=== PATIENT | female | born 1990 ===

== ENCOUNTER 2016-07-15 15:25 | Emergency (ER) | payer SELFPAY ==
[2016-07-15 15:30] VITALS: BP 118/59
[2016-07-15] MEDS ORDERED: LIDOCAINE/EPI/TETRACAINE TOPICAL GEL 3 ML. TP ONE ×2 (15:33→15:45)
--- NOTE | 2016-07-15 15:51 | ED.ADGEN ---
Adult General [facility] HPI Patient is a 26-year-old female presents emergency department laceration to her left forehead. This occurred approximately one hour prior to arrival. Patient states that she hit her head on a table as she was falling to the ground. She denies loss of consciousness or other injuries. Patient states adamantly that she feels safe where she is at. Review of Systems Review of Systems Constitutional: Denies fever or chills [] Eyes: Denies change in visual acuity, redness, or eye pain [] HENT: Denies nasal congestion or sore throat [] Respiratory: Denies cough or shortness of breath [] Cardiovascular: No additional information not addressed in HPI [] GI: Denies abdominal pain, nausea, vomiting, bloody stools or diarrhea [] : Denies dysuria or hematuria [] Musculoskeletal: Denies back pain or joint pain [] Integument: Denies rash or skin lesions [] Neurologic: Denies headache, focal weakness or sensory changes [] Endocrine: Denies polyuria or polydipsia [] Current Medications Current Medications Current Medications Medications (Trade) Dose Ordered Sig/Elisabet Start Time Stop Time Status Last Admin Dose Admin Diphtheria/ Tetanus/Acell Pertussis (Boostrix) 0.5 ml ONCE ONCE 07/15/16 16:20 07/15/16 16:21 DC 07/15/16 16:07 0.5 ML Lidocaine/ Epinephrine (Let Topical) 3 ml 1X ONCE 07/15/16 15:45 07/15/16 15:57 DC 07/15/16 15:37 3 ML Allergies Allergies Allergies Coded Allergies Type Severity Reaction Last Updated Verified No Known Drug Allergies 07/15/16 No Physical Exam Physical Exam Constitutional: Well developed, well nourished, no acute distress, non-toxic appearance. [] HENT: Normocephalic, 4 cm laceration to left forehead with surrounding edema, bilateral external ears normal, oropharynx moist, no oral exudates, nose normal. [] Eyes: PERRLA, EOMI, conjunctiva normal, no discharge. [] Neck: Normal range of motion, no tenderness, supple, no stridor. [] Cardiovascular:Heart rate regular rhythm, no murmur [] Lungs & Thorax: Bilateral breath sounds clear to auscultation [] Abdomen: Bowel sounds normal, soft, no tenderness, no masses, no pulsatile masses. [] Skin: Warm, dry, no erythema, no rash. [] Extremities: No tenderness, no cyanosis, no clubbing, ROM intact, no edema. [] Neurologic: Alert and oriented X 3, normal motor function, normal sensory function, no focal deficits noted. [] Psychologic: Affect normal, judgement normal, mood normal. [] Current Patient Data Vital Signs Vital Signs Date Time Temp Pulse Resp B/P Pulse Ox O2 Delivery O2 Flow Rate FiO2 07/15/16 15:30 98.2 64 18 98 Room Air EKG EKG [] Radiology/Procedures Radiology/Procedures [] Course & Med Decision Making Course & Med Decision Making Pertinent Labs and Imaging studies reviewed. (See chart for details) The patient tolerated the procedure well. She was discharged home with supportive care and follow-up directions. [] Final Impression Final Impression Facial laceration Problems: Dragon Disclaimer Dragon Disclaimer This electronic medical record was generated, in whole or in part, using a voice recognition dictation system. Laceration Repair Lac Repair Indication: [] Laceration Procedure: The patient was placed in the appropriate position and anesthesia around the achieved using let. The area was then irrigated. The laceration was closed using 6 simple interrupted sutures of 6-0 Vicryl The wound area was then dressed with bandage Total repaired wound length: 4 cm Other Items: None The patient tolerated the procedure well Complications: None MUNIR WATKINS MD Jul 15, 2016 15:51
[2016-07-15] MEDS ORDERED: DIPHTH,PERTUSS(ACELL),TET TOX 0.5 ML DISP.SYRIN. VAX IM ONE (16:20)
== END 2016-07-15 16:34 | disposition home or self-care (01) ==
LOC: ER 15:25
DX: S01.81XA Laceration without foreign body of other part of head, initial encounter (principal); W18.09XA Striking against other object with subsequent fall, initial encounter; Y93.89 Activity, other specified; Y99.8 Other external cause status; Y92.89 Other specified places as the place of occurrence of the external cause
CPT/HCPCS: 12013; 90471; 90715; 99283-25